=== PATIENT | female | born 1985 | race Caucasian/White ===

== ENCOUNTER 2018-05-20 06:15 | Emergency (ER) | payer BC ==
[~2018-05-20] VITALS: Ht 157.5 cm; Wt 79.5 kg
[2018-05-20 06:18] VITALS: TEMP 97.5
[2018-05-20] MEDS ORDERED: PRENATAL PO (06:25)
[2018-05-20 06:54] LABS: COLLECTION METHOD CLEAN CATCH
[2018-05-20 07:08] LABS: MUCOUS Present /lpf; PH 5 (5-8); URINE APPEARANCE Clear; URINE BACTERIA Rare /hpf; URINE BILIRUBIN Negative (NEGATIVE); URINE BLOOD Negative (NEGATIVE); URINE COLOR Amber; URINE GLUCOSE Negative (NEGATIVE); URINE KETONE Negative (NEGATIVE); URINE LEUKOCYTE ESTERASE Negative (NEGATIVE); URINE NITRATE Negative (NEGATIVE); URINE PROTEIN(semi-quant) 1+ (NEGATIVE); URINE RBC 0-2 /hpf
[2018-05-20 07:12] LABS: BASO % 0.6 % (0.0-2.0); EOS # 0.2 (0.0-0.7); EOS % 2.5 % (0-4.0); GRAN # 4.6 (1.4-6.5); GRAN % 65.9 % (42.2-75.2); HEMOGLOBIN 11.6 g/dl (12.5-16.0); LYMPH # 1.8 (1.2-3.4); LYMPH % 26.2 % (20.0-51.0); MEAN CELL VOLUME 79 fl (80.0-100.0); MEAN CORPUSCULAR HEMOGLOBIN 28 pg (27.0-31.0); MEAN CORPUSCULAR HGB CONC 36 g/dl (33.0-37.0); MEAN PLATELET VOLUME 9.9 fl (7.4-10.4); MONO # 0.3 (0.1-0.6); MONO % 4.5 % (1.7-9.3); PLATELET COUNT 236 K/mm3 (130-400); RED BLOOD COUNT 4.14 M/mm3 (4.10-5.30); REDCELL DISTRIBUTION WIDTH-CV 13.7 % (11.5-14.5)
[2018-05-20 07:14] LABS: HEMATOCRIT 32.7 % (37.0-47.0)
[2018-05-20 07:34] LABS: ALBUMIN 3.2 gm/dL (3.5-5.0); BILIRUBIN,TOTAL 0.3 mg/dL (0.0-1.0); C-REACTIVE PROTEIN 1.2 mg/dL (0.0-0.9); CALCIUM 8.7 mg/dL (8.4-10.2); CREATININE, serum 0.55 mg/dL (0.52-1.25); POTASSIUM 3.5 mmol/L (3.4-5.0); TOTAL PROTEIN 6.3 gm/dL (6.4-8.2)
[2018-05-20] MEDS ORDERED: PHENERGAN 25 TA25 MG PO (08:17)
[2018-05-20 08:50] VITALS: BP 95/66; PULSE 77
== END 2018-05-20 08:51 | disposition home or self-care (01) ==
LOC: COL.ER 06:15
PROVIDERS: Emergency Medicine
DX: O99.89 Other specified diseases and conditions complicating pregnancy, childbirth and the puerperium (principal); R10.10 Upper abdominal pain, unspecified; Z3A.20 20 weeks gestation of pregnancy
CPT/HCPCS: J2550; J7030